=== PATIENT | male | born 1935 | race Caucasian/White ===

== ENCOUNTER 2021-09-11 11:01 | Observation (INO) | payer MEDICARE, OTHER ==
[~2021-09-11] VITALS: Ht 182.9 cm; Wt 85.3 kg
[~2021-09-11 11:01] MED LIST: ALLOPURINOL300 MG PO; BUSPIRONE HCL5 MG PO; DOXAZOSIN MESYLA2 MG PO; FINASTERIDE5 MG PO; FISH OIL 1,0001 EAC2 PO; FLOMAX0.4 MG PO; FUROSEMIDE40 MG PO; GABAPENTIN100 MG PO; KEFLEX500 MG PO; LEVOTHYROXINE75 MCG PO; LORAZEPAM1 MG PO; NORCO 5-325 TA1 EACH PO; PANTOPRAZOLE SO40 MG PO; PLAVIX75 MG PO; PROPRANOLOL HCL10 MG PO; SIMVASTATIN80 MG PO; SULFAMETHOXAZO1 EAC1 PO; TYLENOL WITH C1 EACH PO; VIT D3 PO
[2021-09-11] MEDS ORDERED: METHYLPREDNISOLONE SOD SUCC 125 MG/2ML VIAL IV ONE (11:15)
[2021-09-11 11:36] LABS: BASOPHILS # (AUTO) 0.1 (0.0-0.1); BASOPHILS % 0.6 % (0.0-1.0); EOSINOPHILS # (AUTO) 0.2 (0.0-0.4); EOSINOPHILS % 2.3 % (0.0-6.0); HEMATOCRIT 40.8 % (38.2-49.6); HEMOGLOBIN 13.1 g/dL (14.0-18.0); LYMPHOCYTES # (AUTO) 1.4 (1.0-3.2); LYMPHOCYTES % 16.7 % (18.0-39.1); MEAN CORPUSCULAR HEMOGLOBIN 32.6 pg (28-32); MEAN CORPUSCULAR HGB CONC 32.1 g/dL (31-35); MEAN CORPUSCULAR VOLUME 101.5 fL (81-99); MONOCYTES # (AUTO) 0.7 (0.2-0.8); MONOCYTES % 7.7 % (4.4-11.3); NEUTROPHILS # (AUTO) 6.1 (2.1-6.9); NEUTROPHILS % 72.5 % (38.7-80.0); PLATELET COUNT 143 x10e3/uL (140-360); RED BLOOD COUNT 4.02 x10e6/uL (4.3-5.7); RED CELL DISTRIBUTION WIDTH 15.4 % (11.7-14.4)
[2021-09-11 11:57] LABS: ALBUMIN 3.6 g/dL (3.5-5.0); ALBUMIN/GLOBULIN RATIO 0.8 (0.8-2.0); ANION GAP 14.3 mmol/L (8-16); CALCIUM 8.8 mg/dL (8.4-10.2); CREATININE, SERUM 1.24 mg/dL (0.72-1.25); POTASSIUM 4.3 mmol/L (3.5-5.1)
[2021-09-11] MEDS ORDERED: ALBUTEROL/IPRATROPIUM 3 ML NEB NEB ONE (12:00)
[2021-09-11] MEDS ORDERED: FUROSEMIDE INJ 10 MG/ML 4 ML VIAL IV ONE (13:00)
[2021-09-11] MEDS ORDERED: ASPIRIN 81 MG CHEW TAB PO ONE (13:15)
[2021-09-11 13:41] VITALS: BP 163/43
[2021-09-11 14:43] VITALS: BP 163/43
[2021-09-11 14:50] VITALS: BP 163/43
[2021-09-11 16:34] VITALS: BP 110/75
[2021-09-11 19:37] LABS: CREATINE KINASE MB 1.9 ng/mL (0-5.0)
[2021-09-11 20:00] VITALS: BP 123/52
[2021-09-11 21:00] VITALS: BP 123/52
[2021-09-11] MEDS: FUROSEMIDE INJ 10 MG/ML 4 ML VIAL IV SCH (21:38)
[2021-09-12] VITALS (8 sets, daily range): BP systolic 95–141; BP diastolic 50–101
[2021-09-12 05:53] LABS: BASOPHILS % 0.1 % (0.0-1.0); HEMATOCRIT 37.6 % (38.2-49.6); HEMOGLOBIN 12.4 g/dL (14.0-18.0); LYMPHOCYTES # (AUTO) 0.7 (1.0-3.2); LYMPHOCYTES % 7.7 % (18.0-39.1); MEAN CORPUSCULAR HEMOGLOBIN 32.3 pg (28-32); MEAN CORPUSCULAR VOLUME 97.9 fL (81-99); MONOCYTES # (AUTO) 0.3 (0.2-0.8); MONOCYTES % 2.6 % (4.4-11.3); NEUTROPHILS # (AUTO) 8.5 (2.1-6.9); NEUTROPHILS % 89.3 % (38.7-80.0); PLATELET COUNT 155 x10e3/uL (140-360); RED BLOOD COUNT 3.84 x10e6/uL (4.3-5.7); RED CELL DISTRIBUTION WIDTH 14.7 % (11.7-14.4)
[2021-09-12 06:08] LABS: ALBUMIN 3.2 g/dL (3.5-5.0); ALBUMIN/GLOBULIN RATIO 0.8 (0.8-2.0); ANION GAP 15.6 mmol/L (8-16); CALCIUM 9.3 mg/dL (8.4-10.2); CREATININE, SERUM 1.41 mg/dL (0.72-1.25); POTASSIUM 4.6 mmol/L (3.5-5.1)
[2021-09-12 06:17] LABS: CREATINE KINASE MB 6.2 ng/mL (0-5.0)
[2021-09-12] MEDS: FUROSEMIDE INJ 10 MG/ML 4 ML VIAL IV SCH ×2 (10:24→21:42)
[2021-09-12] MEDS ORDERED: SIMVASTATIN20 MG PO (10:37)
[2021-09-12] MEDS ORDERED: ELIQUIS2.5 MG PO (10:37)
[2021-09-12] MEDS ORDERED: GABAPENTIN300 MG PO (10:37)
[2021-09-12 11:54] LABS: CHOL/HDL RATIO 3.5 (3.9-4.7)
[2021-09-12 12:13] LABS: THYROID STIMULATING HORMONE 0.499 uIU/mL (0.350-4.940)
[2021-09-12] MEDS: APIXAB 2.5 MG TABLET PO SCH (16:55)
[2021-09-12] MEDS: PROPRANOLOL HCL 60 MG ER CAP PO SCH (16:55)
[2021-09-12] MEDS ORDERED: SIMVASTATIN 20 MG TAB PO SCH (21:00)
[2021-09-12] MEDS ORDERED: TAMSULOSIN HCL 0.4 MG CAP PO SCH (21:00)
[2021-09-13 00:13] VITALS: BP 120/89
[2021-09-13 04:00] VITALS: BP 95/55
[2021-09-13 08:00] VITALS: BP 125/76
[2021-09-13 08:17] VITALS: BP 125/76
[2021-09-13] MEDS ORDERED: DIGOXIN 0.125 MG TAB PO SCH (09:00)
[2021-09-13] MEDS: PROPRANOLOL HCL 60 MG ER CAP PO SCH (09:00)
[2021-09-13] MEDS: APIXAB 2.5 MG TABLET PO SCH (10:10)
[2021-09-13 11:51] VITALS: BP 118/95
[2021-09-14] MEDS ORDERED: FUROSEMIDE 40 MG TAB PO SCH (09:00)
== END 2021-09-13 12:34 | disposition home or self-care (01) ==
LOC: ER 11:13 → ERHOLD 13:10 → MED/SURG 14:28
DX: I13.0 Hypertensive heart and chronic kidney disease with heart failure and stage 1 through stage 4 chronic kidney disease, or unspecified chronic kidney disease (principal); I50.23 Acute on chronic systolic (congestive) heart failure; I25.10 Atherosclerotic heart disease of native coronary artery without angina pectoris; E78.5 Hyperlipidemia, unspecified; J44.9 Chronic obstructive pulmonary disease, unspecified; I49.5 Sick sinus syndrome; Z95.0 Presence of cardiac pacemaker; K21.9 Gastro-esophageal reflux disease without esophagitis; Z95.1 Presence of aortocoronary bypass graft; Z79.01 Long term (current) use of anticoagulants; Z95.2 Presence of prosthetic heart valve; I73.9 Peripheral vascular disease, unspecified; Z91.14 Patient's other noncompliance with medication regimen; Z20.822 Contact with and (suspected) exposure to COVID-19; N40.1 Benign prostatic hyperplasia with lower urinary tract symptoms; N39.498 Other specified urinary incontinence; N18.30 Chronic kidney disease, stage 3 unspecified
CPT/HCPCS: 36415 ×2; 71045; 80053 ×2; 80061; 80162; 82550 ×2; 82553 ×2; 83880; 84443; 84484 ×2; 85025 ×2; 93005 ×2; 93306; 93880; 94640; 94799 ×2; 99284; G0378 ×3; J1940 ×2; J2930; U0002

== ENCOUNTER → 2022-02-14 | Outpatient (CLI) | payer MEDICARE ==
[~2022-02-14] MED LIST changes: +ELIQUIS2.5 MG PO; +GABAPENTIN300 MG PO; +SIMVASTATIN20 MG PO
== END ==
LOC: RAD 12:03
DX: R06.02 Shortness of breath (principal)
CPT/HCPCS: 71046

== ENCOUNTER 2022-04-11 09:24 | Emergency (ER) | payer MEDICARE ==
[~2022-04-11] VITALS: Ht 182.9 cm; Wt 102.1 kg
[2022-04-11] MEDS ORDERED: METHYLPREDNISOLONE SOD SUCC 125 MG/2ML VIAL IV STA (09:43)
[2022-04-11] MEDS ORDERED: SODIUM CHLORIDE 0.9% 500ML 500 ML IV ONE (09:45)
[2022-04-11] MEDS ORDERED: ALBUTEROL/IPRATROPIUM 3 ML NEB ONE (09:48)
[2022-04-11 09:57] LABS: BASOPHILS # (AUTO) 0.1 (0.0-0.1); BASOPHILS % 0.7 % (0.0-1.0); EOSINOPHILS # (AUTO) 0.3 (0.0-0.4); EOSINOPHILS % 3.5 % (0.0-6.0); HEMATOCRIT 42.5 % (38.2-49.6); HEMOGLOBIN 13.1 g/dL (14.0-18.0); LYMPHOCYTES # (AUTO) 2.1 (1.0-3.2); LYMPHOCYTES % 25.4 % (18.0-39.1); MEAN CORPUSCULAR HEMOGLOBIN 32.8 pg (28-32); MEAN CORPUSCULAR HGB CONC 30.8 g/dL (31-35); MEAN CORPUSCULAR VOLUME 106.3 fL (81-99); MONOCYTES # (AUTO) 0.2 (0.2-0.8); MONOCYTES % 2.4 % (4.4-11.3); NEUTROPHILS # (AUTO) 5.6 (2.1-6.9); NEUTROPHILS % 67.5 % (38.7-80.0); PLATELET COUNT 176 x10e3/uL (140-360); RED CELL DISTRIBUTION WIDTH 14.3 % (11.7-14.4)
[2022-04-11 10:12] LABS: INR 0.98; PARTIAL THROMBOPLASTIN TIME 30.7 seconds (23.8-35.5); PROTHROMBIN TIME 13.9 seconds (11.9-14.5)
[2022-04-11 10:26] LABS: ALBUMIN 3.3 g/dL (3.5-5.0); ALBUMIN/GLOBULIN RATIO 0.8 (0.8-2.0); ANION GAP 18.1 mmol/L (8-16); CALCIUM 8.9 mg/dL (8.4-10.2); CREATININE, SERUM 2.33 mg/dL (0.72-1.25); POTASSIUM 5.1 mmol/L (3.5-5.1)
[2022-04-11 10:33] LABS: CREATINE KINASE MB 2.2 ng/mL (0-5.0)
[2022-04-11 10:44] LABS: ABG HCO3 23 mmol/L (22-26); ABG PCO2 42 mmHg (35-45); ABG PH 7.34 (7.35-7.45); ABG PO2 75 mmHg (80-105); ABG TCO2 24
[2022-04-11] MEDS ORDERED: SODIUM CHLORIDE 0.9% 1000ML 1,000 ML ONE (14:19)
[2022-04-11 16:24] VITALS: BP 129/84
== END 2022-04-11 16:30 | disposition short-term general hospital (02) ==
LOC: ER 09:28
DX: I13.0 Hypertensive heart and chronic kidney disease with heart failure and stage 1 through stage 4 chronic kidney disease, or unspecified chronic kidney disease (principal); N18.30 Chronic kidney disease, stage 3 unspecified; J96.01 Acute respiratory failure with hypoxia; I50.23 Acute on chronic systolic (congestive) heart failure; I25.810 Atherosclerosis of coronary artery bypass graft(s) without angina pectoris; I49.5 Sick sinus syndrome; I48.91 Unspecified atrial fibrillation; I95.9 Hypotension, unspecified; A41.9 Sepsis, unspecified organism; E87.2 Acidosis; J44.9 Chronic obstructive pulmonary disease, unspecified; I73.9 Peripheral vascular disease, unspecified; E78.5 Hyperlipidemia, unspecified; R94.31 Abnormal electrocardiogram [ECG] [EKG]; N40.0 Benign prostatic hyperplasia without lower urinary tract symptoms; K21.9 Gastro-esophageal reflux disease without esophagitis; Z20.822 Contact with and (suspected) exposure to COVID-19; Z79.02 Long term (current) use of antithrombotics/antiplatelets; Z95.810 Presence of automatic (implantable) cardiac defibrillator; Z95.1 Presence of aortocoronary bypass graft; Z95.2 Presence of prosthetic heart valve
CPT/HCPCS: 36415; 36556; 71045; 80053; 80162; 82550; 82553; 82805; 83605; 83735; 83880; 84484; 85025; 85610; 85730; 87040; 93005; 93306; 94640; 94760; 94799; 99284; J0456; J2543; J2930; J7030; J7040; J7050; U0002; 36555